=== PATIENT | female | born 1985 | race African-American/Black ===

== ENCOUNTER 2018-01-23 00:41 | Emergency (ER) | payer MEDICAID ==
[~2018-01-23] VITALS: Ht 165.1 cm; Wt 53.5 kg
[2018-01-23 00:44] VITALS: BP 163/125
[2018-01-23 01:38] LABS: CULTURE INDICATED? YES; MICROSCOPIC INDICATED
[2018-01-23 01:39] LABS: HCG UR SG < 1.005 (1.003-1.030)
[2018-01-23] MEDS ORDERED: FLUCONAZOLE 100 MG TABLET ONE (01:52)
[2018-01-23] MEDS ORDERED: FLUCONAZOLE 100 MG TABLET PO ONE (02:00)
== END 2018-01-23 02:02 | disposition home or self-care (01) ==
LOC: ED 01:57
DX: T83.098A Other mechanical complication of other urinary catheter, initial encounter (principal); B37.9 Candidiasis, unspecified; E11.9 Type 2 diabetes mellitus without complications
CPT/HCPCS: 81001; 81025; 87086; 87106; 99284